=== PATIENT | female | born 1970 | race Caucasian/White ===

== ENCOUNTER 2017-08-05 06:02 | Inpatient (IN) | payer OTHER ==
[~2017-08-05 06:02] MED LIST: Buffered Lidocaine 0.9% SYRIN* 5 ML/SYR SYRINGE INTRADERM ONE; Dexamethasone IV* 4 MG/ML 1 ML (4 MG) IV SLOW PU ONE
[2017-08-05] MEDS ORDERED: Dexamethasone IV* 4 MG/ML 1 ML (4 MG) ONE (06:50)
[2017-08-05] MEDS ORDERED: Clindamycin 900 MG IVPREMIX(* 900 MG/50 ML SDV IV ONE (06:51)
[2017-08-05] MEDS ORDERED: Ciprofloxacin 400MG IVPREMIX(* 400 MG/200 ML BAG ONE (06:51)
[2017-08-05] MEDS ORDERED: Buffered Lidocaine 0.9% SYRIN* 5 ML/SYR SYRINGE ONE (06:51)
[2017-08-05] MEDS ORDERED: Heparin VIAL(*) 5000 UNITS/ML VIAL (FIVE THOUSAND) ONE (06:53)
[2017-08-05] MEDS ORDERED: Methylene Blue 0.5 %* 50 MG/10 ML AMP IV ONE (07:16)
[2017-08-05] MEDS ORDERED: Midazolam* 1 MG/ML 2 ML VIAL (2 MG) ONE (07:26)
[2017-08-05] MEDS ORDERED: Propofol* 10 MG/ML 20 ML BTL IV PUSH ONE (07:26)
[2017-08-05] MEDS ORDERED: Atracurium* 10 MG/ML 10 ML VIAL ONE (07:26)
[2017-08-05] MEDS ORDERED: Ondansetron INJ* 2 MG/ML VIAL ONE (07:26)
[2017-08-05] MEDS ORDERED: Ketorolac INJ* 30 MG/ML 1 ML VIAL ONE (07:26)
[2017-08-05] MEDS ORDERED: Lidocaine 2% PF * 5 ML VIAL ONE (07:26)
[2017-08-05] MEDS ORDERED: fentaNYL* 50 MCG/ML 5 ML VIAL (250 MCG VIAL) ONE (07:26)
[2017-08-05] MEDS ORDERED: Bupivacaine 0.25% SDV* 30 ML ONE (07:27)
[2017-08-05] MEDS ORDERED: Glycopyrrolate IV* 0.2 MG/ML 1 ML VIAL ONE (08:27)
[2017-08-05] MEDS ORDERED: fentaNYL* 50 MCG/ML 2 ML VIAL (100 MCG VIAL) IV PRN (08:40)
[2017-08-05] MEDS ORDERED: DiMENhydriNATE IV* 50 MG/ML VIAL IV PUSH PRN (08:40)
[2017-08-05] MEDS ORDERED: Ondansetron INJ* 2 MG/ML VIAL IV PRN (08:40)
[2017-08-05] MEDS ORDERED: EPHEDrine (Pressors)* 50 MG/ML VIAL ONE (08:41)
[2017-08-05] MEDS ORDERED: diPHENhydraMINE IV* 50 MG/ML 1 ml VIAL (BENADRYL) SLOW PUSH PRN (10:49)
[2017-08-05] MEDS ORDERED: Acetaminophen ADULT LIQ* 650 MG/20.3 ML UDC PO PRN (10:49)
[2017-08-05] MEDS ORDERED: Dextrose 50% Syringe 50 ML* 25 GM/50 ML SYRINGE IV PUSH PRN (10:55)
--- NOTE | 2017-08-05 10:56 | SURGPN ---
Brief Operative Note - Surgery Procedures: Pre-OP Diagnoses: Clinically severe obesity Post-op Diagnosis: same Procedure: Laparoscopic Mak an Y gastric bypass Surgeon: Yoseph Asst: Obed Gormantheandrea: HANNAH Castaneda EBL: minimal IVF: crystalloid Specimen: none Drains: #7 KATIE at gastrojej Huizar
[2017-08-05] MEDS ORDERED: Insulin LISPRO* 1 UNITS UNIT SUBCUT ONE (11:27)
[2017-08-05] MEDS: Insulin LISPRO* 1 UNITS UNIT SUBCUT SCH ×2 (11:28→18:04)
[2017-08-05] MEDS ORDERED: HYDROmorphone INJ* 1 MG/ML CARPUJECT SYRINGE ONE (11:54)
[2017-08-05] MEDS: HYDROmorphone INJ* 1 MG/ML CARPUJECT SYRINGE IV PRN ×6 (11:54→15:43)
[2017-08-05] MEDS: Heparin VIAL(*) 5000 UNITS/ML VIAL (FIVE THOUSAND) SUBCUT SCH ×2 (15:45→21:26)
[2017-08-05] MEDS: Ketorolac INJ* 15 MG/ML 1 ML VIAL IV PRN (20:07)
[2017-08-05] MEDS: Famotidine IV* 10 MG/ML 2 ML (20 mg) IV SLOW PU SCH (21:25)
[2017-08-06] MEDS: Insulin LISPRO* 1 UNITS UNIT SUBCUT SCH ×5 (00:11→23:50)
[2017-08-06] MEDS: HYDROmorphone INJ* 1 MG/ML CARPUJECT SYRINGE IV PRN ×2 (02:56→11:14)
[2017-08-06] MEDS: Ondansetron INJ* 2 MG/ML VIAL IV PRN ×2 (03:00→17:03)
[2017-08-06] MEDS: Heparin VIAL(*) 5000 UNITS/ML VIAL (FIVE THOUSAND) SUBCUT SCH ×3 (06:02→22:32)
[2017-08-06] MEDS: Ketorolac INJ* 15 MG/ML 1 ML VIAL IV PRN ×2 (06:15→17:06)
[2017-08-06 06:16] LABS: Hematocrit 36 % (35-47); Hemoglobin 12.4 g/dl (12.0-16.0); Mean Corpuscular HGB Conc 34 g/dl (31-36); Mean Corpuscular Hemoglobin 30 pg (27-31); Mean Corpuscular Volume 87 fL (80-97); Mean Platelet Volume 8 um3 (7.4-10.4); Red Blood Count 4.15 10^6/ul (4.0-5.4); Red Cell Distribution Width 14 % (10.5-15)
[2017-08-06] MEDS: Famotidine IV* 10 MG/ML 2 ML (20 mg) IV SLOW PU SCH ×2 (08:54→20:29)
--- NOTE | 2017-08-06 09:24 | RAD ---
INDICATION: Bariatric surgery. Evaluate for obstruction or extravasation COMPARISON: None TECHNIQUE: Angiographic was administered per os and digital fluoroscopy was performed. 54 seconds of fluoroscopy was utilized. Esophagus: The esophagus is normal in caliber and motility. There are no mucosal irregularities GE junction: The GE junction is normally positioned. There is no hiatal hernia. There is no gastroesophageal reflux Stomach: There is bariatric surgery. There are no findings of obstruction or extravasation.. Other: None. IMPRESSION: BARIATRIC SURGERY. NO FINDINGS OF OBSTRUCTION OR EXTRAVASATION. CPT II Codes: 6045F PQRS (Fluoro time doc)
[2017-08-06] MEDS: D5W 1/2 NS KCl 20 Meq 1000 ML* 1,000 ML IV SCH ×2 (10:28→17:46)
--- NOTE | 2017-08-06 12:54 | PN ---
Progress Note - Progress Note Date of Service: 08/06/17 SOAP: Subjective: I saw and evaluated the patient. Feels well. No pain. No N/V Objective: af vss uo good a and o x3 lungs clear abdo: soft/ ND/ NT dressing intact KATIE: serosang no calf tenderness labs noted UGI: reviewed Assessment: [POD 1 RYGB Plan: advance diet change IVF glucose control
[2017-08-06] MEDS: BuPROPion XL* 300 MG TAB.XL PO SCH (13:53)
[2017-08-06] MEDS: Lisinopril TAB* 10 MG PO SCH (20:27)
[2017-08-06] MEDS: HYDROcodone/ACET. 7.5/325 LIQ* 15 ML UDC PO PRN (22:31)
[2017-08-07] MEDS: D5W 1/2 NS KCl 20 Meq 1000 ML* 1,000 ML IV SCH (02:05)
[2017-08-07] MEDS: Insulin LISPRO* 1 UNITS UNIT SUBCUT SCH (06:04)
[2017-08-07] MEDS: Heparin VIAL(*) 5000 UNITS/ML VIAL (FIVE THOUSAND) SUBCUT SCH (06:05)
[2017-08-07] MEDS: Famotidine IV* 10 MG/ML 2 ML (20 mg) IV SLOW PU SCH (07:52)
[2017-08-07] MEDS: HYDROcodone/ACET. 7.5/325 LIQ* 15 ML UDC PO PRN (07:55)
[2017-08-07] MEDS: Lisinopril TAB* 10 MG PO SCH (07:57)
[2017-08-07] MEDS: BuPROPion XL* 300 MG TAB.XL PO SCH (07:58)
[2017-08-07 08:00] VITALS: BP 149/81
[2017-08-07] MEDS ORDERED: Omeprazole CAP* 20 MG PO SCH (09:00)
--- NOTE | 2017-08-08 02:43 | DS ---
CC: Dr. Yokasta Francis * DISCHARGE SUMMARY: DATE OF ADMISSION: 08/05/17 DATE OF DISCHARGE: 08/07/17 HOSPITAL COURSE: Ms. Boss is a 47-year-old female, worked up as an outpatient with clinically severe obesity, type 2 diabetes, hypertension, who underwent Mak- en-Y gastric bypass procedure on the day of admission, . Case was uneventful. The patient had KATIE drain placed at the end of the procedure, was transferred to the PACU and then on to the short-stay surgical unit. On postoperative day #1, the patient underwent an upper GI study, which was within normal limits. She was started on a liquid diet, which she tolerated. By postoperative day #2, the patient was doing well. Pain managed with minimal narcotics. She was up and ambulating, urinating on her own, passing gas, and having bowel movement. PHYSICAL EXAMINATION: On day of discharge, physical exam was performed. The patient was afebrile. Vital signs were stable. Head, Ears, Eyes, Nose, and Throat: Normocephalic, atraumatic. Sclerae anicteric. Mucous membranes are moist. Lungs: Clear to auscultation bilaterally. Abdomen: Soft, nondistended , minimal tenderness. Skin incision is intact. Dressings removed. KATIE drain, which showed minimal serous output was also removed. No calf tenderness. PLAN: Discharge home. Follow up in the office at [facility]. Appointment is already made for Thursday afternoon and the patient is aware of this. She understands to contact our office should there be any concerns over the weekend. She will restart her Wellbutrin, her omeprazole, her Lexapro, her antibiotics. We will hold her lisinopril. We will also hold her Janumet and start her on metformin 500 mg b.i.d. She will continue fingersticks and record these and take additional insulin as needed. She will record her glucose numbers, so we can make any changes. Also, would like the patient to be seen by her primary care doctor within the next week. I anticipate her blood sugars will be improved as well as her blood pressure, but we can always change her medications as we will be seeing her on a regular basis. She will continue with bariatric diet and advance as had been discussed with her on multiple occasions. [id number]/[facility] #: [id number] ABEL
--- NOTE | 2017-08-11 23:38 | OP ---
CC: [facility]; Dr. Yokasta Francis * DATE OF OPERATION: 08/05/17 - ROOM #353 DATE OF : 74 SURGEON: Phong Hameed MD TOBACCO STRIPPER HAND: AMANDA Harris ANESTHESIOLOGIST: Dr. Castaneda. ANESTHESIA: General anesthesia. PRE-OP DIAGNOSES: 1. Clinically severe obesity. 2. Type 2 diabetes. 3. Hypertension. POST-OP DIAGNOSES: 1. Clinically severe obesity. 2. Type 2 diabetes. 3. Hypertension. OPERATIVE PROCEDURE: Laparoscopic Mak-en-Y gastric bypass. ESTIMATED BLOOD LOSS: Minimal blood loss. FLUIDS: Minimal crystalloid fluid given. SPECIMEN: None. DRAINS: #7 KATIE drain at the gastrojejunostomy and a Huizar catheter. DESCRIPTION OF PROCEDURE: The patient was identified in the preoperative area. Case was discussed with her and her family members, consent signed. The patient was marked. She was taken to the operating room, placed on the operating table in a supine position. Preoperative antibiotics were given. Sequential devices were placed on bilateral lower extremities. General anesthesia was induced. The patient's abdomen was prepped and draped in the standard surgical fashion after a Huizar catheter had been placed. A time-out was performed. Folds of the umbilicus were elevated anteriorly and a Veress needle was inserted into the abdominal cavity, which was then allowed to insufflate to a pressure of 15 mmHg. The patient tolerated the insufflation well. A midline incision was made just left of midline and a 12-mm trocar was inserted. Laparoscope was inserted through this and a Veress needle removed. There was no evidence of injury. Additional trocars were then placed in the following position: A 12-mm and a 5-mm in the left upper quadrant and a 12-mm and a 5-mm in the right upper quadrant. Review of the abdomen showed mildly bulky liver. This was able to be moved out of the way and we could see the upper most portion of the stomach. At this point, attention was turned towards the omentum. This was reflected superiorly. The transverse colon identified and reflected anteriorly, exposing the ligament of Treitz. Approximately 60 cm from the ligament of Treitz was counted off and the bowel was transected at the site. An enterotomy was made what would become the biliopancreatic limb. The mesentery was undercut with a LigaSure device. Next, the Mak limb was run approximately 100 cm and another enterotomy was made and the jejunojejunostomy was created in an antegrade fashion with 60-mm champagne JOSSELIN stapling device. The defect was closed with 2-0 silk sutures in a qbfvcx-si-sjcgh fashion and the mesenteric defect was similarly closed with interrupted 2-0 silk sutures. Next, the patient was placed in a steep reverse Trendelenburg and Rosa retractor was inserted through a subxiphoid incision and the liver was retracted anteriorly into the right. This exposed the gastroesophageal fat pad and the upper most portion of the stomach. Blunt dissection was carried out at the site to expose the left crura. There appeared to be no hiatal hernia. Next, approximately between the second and third crossing vessel, a retrogastric tunnel was made on the lesser curvature and the stomach was transected with first a 45-mm champagne JOSSELIN stapling device and then completing the pouch with 60-mm champagne JOSSELIN stapling devices extending this towards the left crura. We did this over the Taran tube 32-Setswana for sizing purposes. Next, the Mak limb was then brought up towards the gastric pouch. It had some tension. At this point, we decided to split the omentum. This was done at the area of the gastrocolic ligament which was opened up and the omentum split at the site. This allowed for the Mak limb to then be brought up in apposition to the stomach pouch without tension. Stay sutures were placed using 3 in all simple 2-0 silk sutures. Next, a gastrotomy was made over the Taran tube and an enterotomy was made. These two were made with a 30-mm champagne JOSSELIN stapling device to create the gastrojejunostomy. Common defect was closed with interrupted 3-0 silk sutures in a fdtspk-wc-ehypd fashion. The anastomosis was tested by putting the Taran tube through the anastomosis with ease. The small bowel clamped distal to this and we inserted methylene blue. There was no evidence of extravasation of the blue into the abdominal cavity. This was then removed after suctioning the gastric portion of the blue dye and tubing removed. We did place an additional stitch at the crotch of the staple line of the gastrojejunostomy. I reviewed the jejunojejunostomy which appeared intact. It had showed some signs of blanching earlier on in the process, but this showed better coloring later. Next, a #7 KATIE drain was brought out through the left lateral most incision and placed at the gastrojejunostomy and sutured to the skin with 3-0 Surgipro sutures. The liver retractor was removed. The abdomen was allowed to collapse. Trocars were removed under direct vision and the additional skin incisions were reapproximated with skin kendall followed by sterile dressing. The patient tolerated the procedure well, was transferred to the PACU in stable condition. [id number]/[facility] #: [id number] ABEL
== END 2017-08-07 10:55 | disposition home or self-care (01) | DRG 403 ==
LOC: AA 06:02 → SSU 12:55
PROVIDERS: ADMIT Surgery; ATTEND Surgery
PROC: 0D164ZA Bypass Stomach to Jejunum, Percutaneous Endoscopic Approach (ICD-10-PCS; principal; 2017-08-05 07:45)
DX: E66.01 Morbid (severe) obesity due to excess calories (principal); E11.9 Type 2 diabetes mellitus without complications; I10 Essential (primary) hypertension; K21.9 Gastro-esophageal reflux disease without esophagitis; F32.9 Major depressive disorder, single episode, unspecified; Z79.84 Long term (current) use of oral hypoglycemic drugs
CPT/HCPCS: 36415; 43644; 74246; 81025; 85025; A9270-GY; C1776; J0744; J1100; J1170; J1644; J1885; J2250; J2405; J2704; J3010